=== PATIENT | male | born 1945 | race Caucasian/White ===

== ENCOUNTER 2016-05-19 08:50 | Emergency (ER) | payer BC ==
--- NOTE | 2016-05-19 09:35 | UC ---
Respiratory Complaint HPI - HPI Summary HPI Summary: ONSET THREE DAYS AGO WITH HEAD CONGESTION,RUNNY NOSE, SORE THROAT . TODAY CHEST CONGESTION AND COUGHING. NO FEVER,CHILLS OR BODY ACHES. He is prone to sinus infections and sx are consistent. he does have pain between and behind eyes. hurts more with bending fwd. not using saline rinse or nasal steroids. zpack works well for him. not on statin. mild cough just started. no wheezing. - History of Current Complaint Chief Complaint: UCRespiratory Stated Complaint: CONGESTION Time Seen by Provider: 05/19/16 09:11 - Allergies/Home Medications Allergies/Adverse Reactions: Allergies Allergy/AdvReac Type Severity Reaction Status Date / Time No Known Allergies Allergy Verified 05/19/16 08:54 Home Medications: Home Medications Phenylephrine-Chlorpheniramine [Mireya-[place] Plus Cold &] 1 cap PO Q4H PRN 05/19 [History Confirmed 05/19/16] Tamsulosin CAP* [Flomax CAP*] 0.4 mg PO DAILY 05/19/16 [History Confirmed ] PMH/Surg Hx/FS Hx/Imm Hx Previously Healthy: Yes Cardiovascular History Of: Reports: Hypertension - Surgical History Surgical History: Yes Surgery Procedure, Year, and Place: Left Wrist Reconstruction/Bar, 2014, [facility] ; Right Shoulder, 2010, [place] - Family History Known Family History: Positive: Diabetes Negative: Cardiac Disease - Social History Alcohol Use: Rare Substance Use Type: None Smoking Status (MU): Former Smoker Type: Cigarettes Amount Used/How Often: <1 PPD Length of Time of Smoking/Using Tobacco: 4 Years Have You Smoked in the Last Year: No When Did the Patient Quit Smoking/Using Tobacco: 1969 - Immunization History Most Recent Influenza Vaccination: February 2015 Review of Systems Constitutional: Negative Skin: Negative Eyes: Negative ENT: Sore Throat, Nasal Discharge Respiratory: Cough Cardiovascular: Negative Gastrointestinal: Negative Genitourinary: Negative Motor: Negative Neurovascular: Negative Musculoskeletal: Negative Neurological: Negative Psychological: Negative All Other Systems Reviewed And Are Negative: Yes Physical Exam Triage Information Reviewed: Yes Appearance: Well-Appearing - very pleasant, No Pain Distress, Well-Nourished Vital Signs Reviewed: Yes Eye Exam: Normal ENT: Positive: Hearing grossly normal, Pharyngeal erythema - + PND, + b/l frontal and maxillary tenderness, Nasal drainage, TMs normal. Negative: Tonsillar swelling, Tonsillar exudate, Muffled/hoarse voice Dental Exam: Normal Neck exam: Normal Neck: Positive: Supple, Nontender, No Lymphadenopathy Respiratory Exam: Normal Respiratory: Positive: Chest non-tender, Lungs clear, Normal breath sounds, No respiratory distress, No accessory muscle use Cardiovascular Exam: Normal Cardiovascular: Positive: RRR, No Murmur, Pulses Normal, Brisk Capillary Refill Abdominal Exam: Normal Abdomen Description: Positive: Nontender, Soft Musculoskeletal Exam: Normal Neurological Exam: Normal Psychological Exam: Normal Skin Exam: Normal Respiratory Course/Dx - Differential Dx/Diagnosis Differential Diagnosis/HQI/PQRI: Bronchitis, Laryngitis, Lower Resp Infection, Sinusitis Provider Diagnoses: Sinusitis Discharge - Discharge Plan Condition: Stable Disposition: HOME Prescriptions: Azithromyxin ANIL (NF) [Z-Anil (Zithromax)] 250 mg PO .ZPAK INSTRUCTIONS #6 tab Mometasone NASAL (NF) [Nasonex (NF)] 2 spray NASAL Q24HR #1 nasal.spr Patient Education Materials: Sinusitis (ED) Referrals: Gee Santoyo DO [Primary Care Provider] - 4 Days Additional Instructions: take a probiotic. saline rinses advised followed by the steroid nasal spray. fluids and rest.
[2016-05-19 09:43] VITALS: BP 107/68
== END 2016-05-19 09:48 | disposition home or self-care (01) ==
LOC: UCCORT 08:50
DX: J32.9 Chronic sinusitis, unspecified (principal); I10 Essential (primary) hypertension; Z87.891 Personal history of nicotine dependence
CPT/HCPCS: 99212; G0463